=== PATIENT | female | born 1950 | race Caucasian/White ===

== ENCOUNTER → 2016-12-24 | Outpatient (CLI) | payer MEDICARE ==
[2015-11-27 12:09] VITALS: BP 136/88
[~2016-12-24] MED LIST: AMLO5TAB2 PO; ASCO100T4 PO; ATOR10TA60 PO; CALC1TAB67 PO; CELE200C PO; EZET10TA18 PO; FEXO180T16 PO; GABA-585 PO; HYDR-2758 PO; LISI40TA PO; NAPR500T3 PO; SERT50TA PO; SIMV20TA3 PO; VITA1TAB19 PO; ZINC50TA29 PO
--- NOTE | 2016-12-24 13:20 | KCIC ---
LUMBAR SPINE 2-3V History: Low back pain, history of vertebroplasty Comparison: November 13, 2015 MRI lumbar spine exam Findings: 3 views of the lumbar spine are submitted. There has been interval vertebroplasty at T12. There is again moderate to severe degenerative disc disease greater on the right at L3-4 and L2-3. There is moderate lumbar levoscoliosis centered upon the lumbar spine. There is minimal right lateral subluxation L2 relative to L3. There is minimal left lateral subluxation L4 relative to L5. AP alignment is adequate. There is multilevel lumbar facet degenerative change. There is atherosclerotic calcification of the abdominal aorta. Impression: 1. There is moderate to severe degenerative disc disease L3-4 and L2-3. There is moderate lumbar levoscoliosis. There is multilevel lumbar facet degenerative change. 2. There has been vertebroplasty at T12, lumbar vertebral body stature overall maintained. Electronically signed by: Chris Chavez MD (12/24/2016 1:16 PM) [id number]
--- NOTE | 2016-12-24 13:39 | KCIC ---
CT Abdomen and Pelvis without contrast History: Back pain, microscopic hematuria, previous vertebroplasty, history of kidney stones Technique: Noncontrast CT imaging was performed of the abdomen and pelvis. Multiplanar images are reviewed. Exposure: One or more of the following individualized dose reduction techniques were utilized for this examination: 1. Automated exposure control 2. Adjustment of the mA and/or kV according to patient size 3. Use of iterative reconstruction technique. Comparison: April 09, 2014 Findings: There is mild motion degradation. There is 4 mm inferior right renal calculus which is overall smaller previously up to 7 8 mm. There is new superior right renal calculus up to 4 mm. 5 mm mid left renal calculus is unchanged. A couple of other left renal calculi seen previously are no longer visualized. There is no hydronephrosis of either kidney. A couple of small calcifications in the right pelvis are near although believed to be outside the right ureter. It is difficult to visualize the left ureter in its entirety, no significant ureteral dilatation more proximally. There is stable 36 mm transverse by 29 mm AP focus of cystic change anterior to the left kidney superiorly extending into the region of left adrenal gland. There is small focus of cystlike hypodensity of the left adrenal gland up to 14 mm also similar. Accurate evaluation of abdominal visceral organs is limited without intravenous contrast. There is no obvious abnormality of the spleen, liver, or pancreas. Accurate evaluation of bowel is limited without oral contrast. There is no significant free air, free fluid, bowel dilatation. There is retained stool variably throughout the colon. Some segments of small bowel are limits of normal in caliber with some air-fluid levels present without discrete transition point identified. There is now broad laxity of the ventral abdominal pelvic fascia with underlying bowel which extends near the skin surface with diastasis of the rectus musculature. There again some calcified masses of the uterus likely due to fibroids. There is scattered atherosclerotic calcification of the normal caliber abdominal aorta, also iliac arteries. There is moderate lumbar levoscoliosis. There is right lateral subluxation of L2 relative to L3 by about 0.8 cm. There is more advanced degenerative disc disease L3-4 and L2-3. There has been vertebroplasty at L1. There is multilevel lumbar facet degenerative change. There is moderate to severe narrowing of the right L3-4 neural foramen. There is nonspecific circumferential prominence of the urinary bladder keita. Impression: 1. There are bilateral renal calculi, variable change compared with previous exam as stated. There is no hydronephrosis or convincing ureteral calculus although ureters in the pelvis difficult to visualize in their entirety. 2. There is now broad laxity of the ventral abdominal pelvic fascia extending near the skin surface with underlying bowel, diastasis of the rectus musculature. 3. There is lumbar levoscoliosis. There is multilevel degenerative disc disease and facet degenerative change. There is neural foramina compromise including more significant narrowing on the right at L3-4. There is right lateral subluxation L2 relative to L3. 4. Calcified masses of the uterus are likely due to fibroids. 5. There is unchanged cyst anterior to the superior left kidney extending to the region of left adrenal gland. Electronically signed by: Chris Chavez MD (12/24/2016 1:36 PM) [facility]
== END | disposition home or self-care (01) ==
LOC: KCIC CT 11:52
PROVIDERS: ATTEND Family Medicine
DX: M51.36 Other intervertebral disc degeneration, lumbar region (principal); N20.0 Calculus of kidney; I70.0 Atherosclerosis of aorta; N81.89 Other female genital prolapse; N28.1 Cyst of kidney, acquired; M48.06 Spinal stenosis, lumbar region; Z87.442 Personal history of urinary calculi
CPT/HCPCS: 72100; 74176

== ENCOUNTER → 2017-03-25 | Outpatient (CLI) | payer MEDICARE ==
[2015-11-27 12:09] VITALS: BP 136/88
[~2017-03-25] MED LIST changes: -NAPR500T3 PO; +NAPR500T4 PO
--- NOTE | 2017-03-25 17:15 | KCIC ---
Bilateral digital screening mammograms: Reason for examination: Routine screening. Comparison is made to previous study dated 03/11/2016 and 04/16/2015. Interpretation was made with the benefit of CAD. The skin and nipples show no abnormalities. No abnormal axillary lymph nodes are seen. The breast parenchyma shows scattered fibroglandular density. (Breast density: Category B.) There are no dominant masses, suspicious calcifications or architectural distortions. Some benign calcifications are present. Impression: No evidence of malignancy. Recommend routine screening. BI-RADS category 2: Benign "Our facility is accredited by the [employer] Mammography Program." This patient's information has been entered into a reminder system for the patient to be notified with the results of her examination and a target date for the next mammogram. Electronically signed by: Anais Urias MD (03/25/2017 5:11 PM) [id number]
== END | disposition home or self-care (01) ==
LOC: KCIC MAMMO 09:15
PROVIDERS: ATTEND Family Medicine
DX: Z12.31 Encounter for screening mammogram for malignant neoplasm of breast (principal)
CPT/HCPCS: G0202; 77067

== ENCOUNTER → 2017-03-26 | Outpatient (CLI) | payer MEDICARE ==
[2015-11-27 12:09] VITALS: BP 136/88
[~2017-03-26] MED LIST changes: +REGADENOSON 0.4 MG/5 ML DISP.SYRIN. IV ONE
--- NOTE | 2017-03-26 11:37 | RAD ---
APPROVED REPORT Test Type: Pharmacological Stress Nurse/Tech: Marzena Caicedo R.N. Test Indications: dyspnea, fatigue Cardiac History: htn, current smoker Medications: See Electronic Medical Record Medical History: See Electronic Medical Record Resting ECG: SB w/ slight ST depression < 1 small box in leads V4-V6 Resting Heart Rate: 55 bpm Resting Blood Pressure: 132/89mmHg Pretest Chest Pain: No chest pain Nurse/Tech Notes S1S2, lungs - slight coarse wheezing Consent: The procedure was explained to the patient in lay terms. Informed consent was witnessed. Jaime eout was entered into [employer]. History and Stress Test performed by [facility]. Details Pharmacologic stress testing was performed using 0.4mg per 5ml of regadenoson given intravenously ove r 7-10 seconds. Stress Symptoms SOB which she quickly recovered from POST EXERCISE Reason for Termination: Infusion complete Max HR: 86 bpm Max Blood Pressure: 147/79mmHg Blood Pressure response to exercise: Normal blood pressure response during stress. Heart Rate response to exercise: wnl Chest Pain: No. Arrhythmia: No. ST Change: No. INTERPRETATION Stress EKG Conclusion: No evidence of stress induced EKG changes. Imaging Protocol IMAGE PROTOCOL: Rest Tc-99m/stress Tc-99m 1 day Rest: Stress: Viability: Radiopharm.Tc99m NbwrwrglkVm99q Sestamibi Gakx51lPr 33.8mCi Duration 15min. 10min. Img Date 03/26/2017 03/26/2017 Inj-Img Tyfh16kcv. 60min. Rest Admin Site:IV - Left AntecubitalAdministrator:RT Alvino (R)(N) Stress Admin Site: IV - Left AntecubitalAdministrator: NINI Pang STRESS DATA End Diast. Vol.77.0mlAv. Heart Rate86.0bpm End Syst. Vol.14.0mlCO Index BSA0.0L/min Myocardial Hrns521.0gEject. Przimmoe82.0% Stress Rates Pk. Fill Rate3.78EDV/secLVtime Pk. Fill 206.57msec Pk. Empty Rate5.60ESV/secLVtime Pk. Szkeo254.24msec 1/3 Pk. Fill0.86EDV/sec Stress Scores Regional WT1.00Summed WT6.00 Regional WM0.00Summed WM0.00 The rest and stress images show normal perfusion, normal contraction and thickening. LV Perf. Quant 17 Seg. SSS0.00 17 Seg. SRS0.00 17 Seg. SDS0.00 Stress Defect Extent (% LAD)0.00Rest Defect Extent (% LAD)0.00Rev. Defect Extent (% LAD)0.00 Stress Defect Extent (% LCX) 0.00Rest Defect Extent (% LCX)0.00Rev. Defect Extent (% LCX)0.00 Stress Defect Extent (% RCA)0.00Rest Defect Extent (% RCA)0.00Rev. Defect Extent (% RCA)0.00 Stress Defect Extent (% NIKITA)0.00Rest Defect Extent (% NIKITA)0.00Rev. Defect Extent (% NIKITA)0.00 Other Information Quality:Good Risk Assessment: Low Risk Conclusion 1. No evidence of EKG changes with stress testing. 2. Normal perfusion at stress/rest. 3. Low risk study. 4. EF > 60%.
== END | disposition home or self-care (01) ==
LOC: NM 07:01
PROVIDERS: ATTEND Family Medicine
DX: I10 Essential (primary) hypertension (principal); E78.5 Hyperlipidemia, unspecified; M54.5 Low back pain; R53.83 Other fatigue; R06.00 Dyspnea, unspecified
CPT/HCPCS: 78452; 93017; 96374; 96375; 96376; A9500; J2785

== ENCOUNTER → 2017-03-29 | Outpatient (CLI) | payer MEDICARE ==
[2015-11-27 12:09] VITALS: BP 136/88
[~2017-03-29] MED LIST changes: -REGADENOSON 0.4 MG/5 ML DISP.SYRIN. IV ONE
--- NOTE | 2017-03-29 10:26 | KCIC ---
MRI of the lumbar spine without contrast 03/29/2017 CLINICAL HISTORY: Chronic low back pain. TECHNIQUE: Unenhanced T1-weighted, T2-weighted and inversion recovery sagittal and T1-weighted and T2-weighted axial images of the lumbar spine were obtained. FINDINGS: Comparison is made to radiographs of the lumbar spine dated 12/24/2016. Mild to moderate S-shaped curvature of the thoracolumbar spine is seen. The patient is post kyphoplasty type procedure for an old compression fracture involving the T12 vertebral body. There is no MRI evidence of an acute compression fracture involving the lumbar vertebrae. Degenerative signal changes are seen involving all of the disks of the lumbar spine. Degenerative signal changes are seen within the marrow surrounding these discs. Loss of height of the L2-3 and L3-4 discs is noted. The conus medullaris is normal in position and signal characteristics. At the T11-12 disc space there is a mild to moderate generalized disc bulge. This is eccentric to the left. Superimposed on this disc bulge is a central/left paracentral disc osteophyte complex. This measures 3 mm in AP diameter. Degenerative changes are seen involving the facet joints bilaterally. These findings efface the anterior CSF without resulting in significant central spinal canal or neural foraminal stenosis. At the T12-L1 disc space there is a minimal generalized disc bulge. Degenerative changes are seen involving the facet joints bilaterally. These findings do not result in significant central spinal canal or neural foraminal stenosis. At the L1-2 disc space there is a mild to moderate generalized disc bulge. This is eccentric to the left. Degenerative changes are seen involving the facet joints bilaterally. There is mild ligamentum flavum hypertrophy bilaterally. These findings when combined result in mild left greater than right central spinal canal stenosis. Mild left neural foraminal stenosis is seen. The right neural foramen is patent. At the L2-3 disc space there is a moderate generalized disc bulge. Degenerative changes are seen involving the facet joints bilaterally. There is mild ligamentum flavum hypertrophy bilaterally. These findings when compared result in mild to moderate central spinal canal stenosis. Mild bilateral neural foraminal stenosis is seen. At the L3-4 disc space there is a mild to moderate generalized disc bulge. This is eccentric to the right. Degenerative changes are seen involving the facet joints bilaterally. Small facet joint effusions, left greater than right are noted. Mild to moderate ligamentum flavum hypertrophy is seen. These findings when combined result in mild to moderate central spinal canal stenosis. Moderate right neural foraminal stenosis is seen. The left neural foramen is patent. At the L4-5 disc space there is a mild to moderate generalized disc bulge. Degenerative changes are seen involving the facet joints bilaterally. There is mild ligamentum flavum hypertrophy bilaterally. These findings when combined do not result in significant central spinal canal or neural foraminal stenosis. At the L5-S1 disc space there is a mild generalized disc bulge. Degenerative changes are seen involving the facet joints bilaterally. These findings do not result in significant central spinal canal or neural foraminal stenosis. IMPRESSION: The changes of degenerative disc disease are seen involving the lower thoracic and the throughout the lumbar spine. These findings result in mild left greater than right central spinal canal stenosis at L1-2 and mild to moderate central spinal canal stenosis at L2-3 and L3-4. Mild left neural foraminal stenosis is seen at L1-2. Mild bilateral neural foraminal stenosis is seen at L2-3. Moderate right neural foraminal stenosis is seen at L3-4. Electronically signed by: Chad Sampson MD (03/29/2017 10:23 AM) [facility]
== END | disposition home or self-care (01) ==
LOC: KCIC MRI 09:21
PROVIDERS: ATTEND Family Medicine
DX: M48.061 Spinal stenosis, lumbar region without neurogenic claudication (principal); M51.36 Other intervertebral disc degeneration, lumbar region
CPT/HCPCS: 72148

== ENCOUNTER → 2017-04-16 | Outpatient (CLI) | payer MEDICARE ==
[2015-11-27 12:09] VITALS: BP 136/88
[~2017-04-16] MED LIST changes: +IOHEXOL 180 MG/ML 10 ML VIAL. ONE; +methylPREDNISolone ACETATE 40 MG/ML VIAL. ONE; +methylPREDNISolone ACETATE 80 MG/ML VIAL. ONE
--- NOTE | 2017-04-16 20:56 | PAIN ---
DATE OF SERVICE: 04/16/2017 INITIAL CONSULTATION FOR PAIN CLINIC CHIEF COMPLAINT: Low back and bilateral lower extremity pain. HISTORY OF PRESENT ILLNESS: This is a 67-year-old female who presents with history of pain for "many years "in the low back and bilateral lower extremities. The patient has had physical therapy in the past as well as some chiropractic treatment, which she feels has been helping to a moderate extent, but she got to the point where the pain is still present without significant improvement. The patient reports she also has some pain in her low back radiating to bilateral lower extremities, worse on the right than the left. The patient has significant history of having polio as a child and significant limp from this on her right side, also some significant knee pain. She has been helped significantly by gabapentin, which she is taking currently. The patient reports otherwise the pain is worse with standing, walking, changing positions, better with sitting or lying down, awakens her from sleep only very rarely and she usually sleeps on her stomach. The patient reports it can affect her bowel or bladder control. She can have some difficulty with frequency, but no actual loss of continence. The patient reports she has difficulty with walking. She has a cane or walker but did not have either with her today. The patient reports the pain is aching, constant becoming more noticeable, worse with walking, standing, once again better with sitting or lying down. The patient reports it is beginning to radiate in the posterior gluteus, posterior thighs, especially on the right side into the posterior calf occasionally when she is on her feet more than about 30 minutes. The patient did have an MRI scan of the lumbar spine showing degenerative changes throughout the lumbar spine with mild left greater than right central spinal stenosis at L1-L2, usov-kt-fsupjeec central stenosis L2-L3 and L3-L4 with mild left neural foraminal stenosis at L1-L2, mild bilateral neural foraminal stenosis at L2-L3 and moderate right neural foraminal stenosis at L3-L4. The patient reports no loss of motor function but significant fatigability, especially at the right leg more over the last month or so with walking. The patient again is taking gabapentin, also is taking Jewell, which does decrease the pain by about 50%-60% when she takes it. PAST MEDICAL HISTORY: Significant for arthritis, hypertension, hearing aids with cigarette smoking and hyperlipidemia. Again, history of polio, history of anxiety and osteopenia. PAST SURGICAL HISTORY: Previous surgeries include cholecystectomy in 1974. Previous surgeries on her right ankle and knee related to the polio and compression fracture in 2016. 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 MEDICATIONS: Include atorvastatin, vitamin C, zinc, gabapentin, lisinopril, Celebrex, Zoloft, amlodipine, Zetia and calcium. ALLERGIES: The patient has no known drug allergies. FAMILY HISTORY: Significant for no major medical problems or conditions that she is aware of. SOCIAL HISTORY: The patient does not drink alcohol, smokes about 1 pack of cigarettes a day and has for over 50 years. She is , lives with her spouse, lives locally in [place], [place] and is currently retired. REVIEW OF SYSTEMS: The patient's review of systems is positive for those items mentioned in history of present illness. All systems reviewed and otherwise negative. It is complete, full and well documented on the patient's chart. PHYSICAL EXAMINATION: VITAL SIGNS: Today, the patient's blood pressure is 150/83, pulse is 73, respirations are 20, temperature 97.9 degrees Fahrenheit, height is 5 feet 2 inches and weighs 172 pounds. GENERAL: The patient is awake, alert, oriented, appropriate and very pleasant demeanor. HEENT: Head shows normocephalic and atraumatic. Extraocular movements are intact and symmetrical. Oral cavity: Mucous membranes moist and pink. Dentition is intact. NECK: Shows anterior throat supple without palpable lymphadenopathy noted. Swallow reflex is symmetrical. CHEST: Shows normal with inspection. Breath sounds clear to auscultation bilaterally. HEART: Shows S1 and S2 clear. No murmurs auscultated. ABDOMEN: Obese but soft, nontender and nondistended. Extensive surgical scarring is noted in the hypogastric region. No rebound or guarding. BACK: The patient's back shows spine grossly in the midline. Slight exaggeration of thoracic kyphosis and mild flattening of the lumbar lordotic curvature. No previous bruises, lesions, rashes or scars are noted in the lumbar distribution. Lumbar paraspinous muscle shows symmetrical on inspection with palpation shows some moderate tenderness throughout the upper, middle, lower distribution of paraspinous muscles bilaterally but without trigger points, without radiation. No tenderness over the sacrum or the sacroiliac regions. The patient has good rotational motion both laterally as well as extension and flexion greater than 10 degrees and extension, right and left lateral rotation and forward flexion 45 degrees without significant pain. The patient's lower extremities show deep tendon reflexes 1+ in the patellar and tendo calcaneus tendons. Motor exam is approximately 4 on a scale of 5 bilaterally but intact with dorsiflexion, extension, quadriceps and hamstring flexion, slightly weaker on the right than the left but intact bilaterally. Peripheral pulses are 1+ posterior tibial and dorsalis pedis pulses. No peripheral edema is noted. No clubbing or cyanosis. The patient's straight leg raise noted to be grossly positive, more on the right than the left at about 35-40 degrees but decreased with knee flexion. Gaenslen's and Israel's maneuvers are difficult to obtain on the right side as she is not able to externally rotate her hip very far, but no pain reported in the left side shows negative findings as well. The patient is able to stand, stand on her toes with some difficulty on the right foot, again secondary to previous surgeries and polio. Left side shows strong ability to stand on her left leg without significant increase in pain. The patient ambulates with a significant limping gait favoring the right lower extremity to a significant extent again. Does not have a cane or walker with her today but reports she normally uses one when she is walking any distance. The patient's skin shows a warm and dry, good turgor with no significant edema. Again, scarring on the abdominal wall is noted. IMPRESSION: 1. This is a 67-year-old female with multiple year history of low back pain, increasing in the bilateral lower extremities, right greater than left. 2. MRI scan of the lumbar spine as noted. 3. History of polio. 4. Arthritis. 5. Hypertension. 6. Cigarette smoking. PLAN: Options were discussed with the patient including conservative medical management, physical therapy, interventional techniques and she would like to pursue interventional techniques and she has had physical therapy and chiropractic procedures currently and in the past. We discussed a lumbar epidural steroid injection using description as well as anatomical models to describe the procedure. Risks were then discussed including, but not limited to bleeding, infection, possibility of epidural hematoma, subsequent neurological compromise, dural puncture, headaches, spinal cord and/or nerve damage, side effects of steroid medication and poor results regarding pain control. The patient understands and wished to proceed. The patient to return to clinic in approximately 2 weeks for followup, was counseled to return appointment, activity level and side effects to be aware of. DIAGNOSES: Lumbar radiculopathy with lumbar degenerative disk disease and lumbar spinal stenosis. PROCEDURE: Lumbar epidural steroid injection, translaminar approach at L4-L5 level using C-arm fluoroscopic guidance and sterile prep and drape using local anesthetic. MEDICATION INJECTED: A total of 120 mg Depo-Medrol plus 10 mL of preservative-free normal saline and 2 mL of Isovue for contrast. CONDITION AT DISCHARGE: Stable. The patient tolerated procedure well, had no complications. CHELSEY RIOS MD DR: BASIM/amairani JOB#: [id number] / [id number] DESI Mckay MD
== END | disposition home or self-care (01) ==
LOC: PNCL 09:50
PROVIDERS: ATTEND Anesthesiology
DX: M51.16 Intervertebral disc disorders with radiculopathy, lumbar region (principal); M48.061 Spinal stenosis, lumbar region without neurogenic claudication; I10 Essential (primary) hypertension; F17.200 Nicotine dependence, unspecified, uncomplicated; F41.9 Anxiety disorder, unspecified; Z90.49 Acquired absence of other specified parts of digestive tract; Z98.890 Other specified postprocedural states; Z87.39 Personal history of other diseases of the musculoskeletal system and connective tissue; Z72.0 Tobacco use
CPT/HCPCS: 62323; J1030; J1040

== ENCOUNTER → 2017-04-30 | Outpatient (CLI) | payer MEDICARE | END | disposition home or self-care (01) | LOC: PNCL 08:23 | DX: M51.16 Intervertebral disc disorders with radiculopathy, lumbar region (principal); M48.061 Spinal stenosis, lumbar region without neurogenic claudication | CPT/HCPCS: G0463 ==

== ENCOUNTER → 2017-12-21 | Outpatient (CLI) | payer MEDICARE ==
[2015-11-27 12:09] VITALS: BP 136/88
[~2017-12-21] MED LIST changes: -IOHEXOL 180 MG/ML 10 ML VIAL. ONE; +LISI-130 PO; -LISI40TA PO; +NAPR-514 PO; -NAPR500T4 PO; +VARE0.5T PO; -methylPREDNISolone ACETATE 40 MG/ML VIAL. ONE; -methylPREDNISolone ACETATE 80 MG/ML VIAL. ONE
--- NOTE | 2017-12-21 11:59 | CARD ---
MR#: [id number] Date of Study: 12/21/2017 Ordering Physician: DESI MENA, Referring Physician: DESI MENA, Tech: Cari Yu APPROVED REPORT EXAM: Two-dimensional and M-mode echocardiogram with Doppler and color Doppler. Other Information Quality : GoodHR: 63bpm INDICATION Pedal Edema 2D DIMENSIONS RVDd2.5 (2.9-3.5cm)Left Atrium(2D)3.7 (1.6-4.0cm) IVSd1.2 (0.7-1.1cm)Aortic Root(2D)3.0 (2.0-3.7cm) LVDd5.0 (3.9-5.9cm)LVOT Diameter2.1 (1.8-2.4cm) PWd1.1 (0.7-1.1cm)LVDs2.7 (2.5-4.0cm) FS (%) 46.1 %SV89.6 ml Aortic Valve AoV Peak Reuben.160.0cm/sAoV VTI31.9cm AO Peak GR.10.2mmHgLVOT Peak Reuben.122.3cm/s AO Mean GR.5mmHgAVA (VMAX)2.52cm2 Mitral Valve MV E Dbpmyhbd44.1cm/sMV DECEL FSAU334ou MV A Thkwfduo66.9cm/sE/A Ratio0.9 Tricuspid Valve TR P. Qydsvynn127de/sRAP BYTUUPAG0fkEl TR Peak Gr.87ouLfNKFT02qsOk Pulmonary Vein S1 Xzkwvatz28.4cm/sD2 Npomjjpx93.0cm/s PVa [id number] LEFT VENTRICLE The left ventricle is normal size. There is borderline to mild concentric left ventricular hypertroph y. The left ventricular systolic function is normal and the ejection fraction is within normal range. The Ejection Fraction is 60-65%. There is normal LV segmental wall motion. Transmitral Doppler flow pattern is Grade I-abnormal relaxation pattern. RIGHT VENTRICLE The right ventricle is normal size. There is normal right ventricular wall thickness. The right ventr icular systolic function is normal. ATRIA The left atrium size is normal. The right atrium size is normal. The interatrial septum is intact wit h no evidence for an atrial septal defect or patent foramen ovale as noted on 2-D or Doppler imaging. AORTIC VALVE The aortic valve is normal in structure and function. Doppler and Color Flow revealed no significant aortic regurgitation. There is no significant aortic valvular stenosis. MITRAL VALVE The mitral valve is normal in structure and function. There is no mitral valve stenosis. Doppler and Color-flow revealed trace mitral regurgitation. TRICUSPID VALVE The tricuspid valve is normal in structure and function. Doppler and Color Flow revealed trace tricus pid regurgitation. Estimated PAP 39mmHg. PULMONIC VALVE The pulmonary valve is normal in structure and function. Doppler and Color Flow revealed no pulmonic valvular regurgitation. GREAT VESSELS The aortic root is normal in size. The IVC is normal in size and collapses >50% with inspiration. PERICARDIAL EFFUSION There is no evidence of significant pericardial effusion. Critical Notification Critical Value: No <Conclusion> The left ventricle is normal size. The left ventricular systolic function is normal and the ejection fraction is within normal range. The Ejection Fraction is 60-65%. There is borderline to mild concentric left ventricular hypertrophy. There is no significant aortic valvular stenosis. Doppler and Color Flow revealed no significant aortic regurgitation. Doppler and Color-flow revealed trace mitral regurgitation. Doppler and Color Flow revealed trace tricuspid regurgitation. Estimated PAP 39mmHg. Signed by : Isaiah Neil MD Electronically Approved : 12/21/2017 11:58:17
== END | disposition home or self-care (01) ==
LOC: ECHO 08:24
PROVIDERS: ATTEND Family Medicine
DX: I11.9 Hypertensive heart disease without heart failure (principal); E78.5 Hyperlipidemia, unspecified; J44.9 Chronic obstructive pulmonary disease, unspecified; Z86.2 Personal history of diseases of the blood and blood-forming organs and certain disorders involving the immune mechanism; Z87.442 Personal history of urinary calculi; Z87.39 Personal history of other diseases of the musculoskeletal system and connective tissue
CPT/HCPCS: 93306

== ENCOUNTER → 2018-03-10 | Outpatient (CLI) | payer MEDICARE ==
[2015-11-27 12:09] VITALS: BP 136/88
[~2018-03-10] MED LIST changes: -AMLO5TAB2 PO; +AMLO5TAB7 PO; +IOHEXOL 180 MG/ML 10 ML VIAL. ONE; +methylPREDNISolone ACETATE 40 MG/ML VIAL. ONE; +methylPREDNISolone ACETATE 80 MG/ML VIAL. ONE
--- NOTE | 2018-03-10 16:15 | PAIN ---
DATE OF SERVICE: 03/10/2018 PROGRESS NOTE FOR PAIN CLINIC DIAGNOSES: Lumbar radiculopathy with lumbar degenerative disk disease, lumbar spinal stenosis. HISTORY OF PRESENT ILLNESS: The patient is a 68-year-old female who returns for followup, last seen 04/30/2017. The patient has done very well by 80% improvement after a lumbar epidural steroid injection on 04/16/2017. The patient reports the pain is returning now in the low back bilaterally as it was previously. The patient reports it has been this way for about 3-4 weeks, increasing, not the result of any specific recent injury or accident or other causative injury that she is aware of, but the pain has been returning on its own slowly. The patient reports it is across the low back in the bilateral posterior gluteus, posterior thighs, lateral thighs, lateral anterior thighs, medial thighs, aching, cramping and constant in description, rates 8 on a scale of 10 at its worst, 6 on average and 3 at its least and is a 6 today. The patient reports no loss of motor function. It is waking her from sleep about every 4 hours over the past month or so. The patient reports no new bowel or bladder incontinence or other complaints. PHYSICAL EXAMINATION: VITAL SIGNS: The patient's blood pressure 138/85, pulse 77, respirations 18, temperature 98.9 degrees Fahrenheit, height is 5 feet 2 inches, weight 163 pounds. GENERAL: The patient is awake, alert, oriented, appropriate, very pleasant demeanor. HEENT: Head is normocephalic, atraumatic. Extraocular movements are intact and symmetrical. Oral cavity: Mucous membranes moist and pink. Dentition intact. NECK: Shows anterior throat supple without palpable lymphadenopathy noted. Swallow reflex symmetrical. CHEST: Shows normal with inspection. Breath sounds clear to auscultation bilaterally. HEART: Shows S1, S2 clear. No murmurs auscultated. ABDOMEN: Soft, nontender, nondistended, obese. No palpable organomegaly is noted. No rebound or guarding demonstrated. BACK: Shows spine grossly in the midline with normal appearing thoracic kyphosis and lumbar lordotic curvature. Lumbar paraspinous muscle shows symmetrical on inspection, with palpation shows some moderate tenderness diffusely, but only with deeper palpation in the low lumbar distribution without radiation. The patient has good rotational motion of lumbar spine, both laterally as well as extension and flexion without significant difficulty. No tenderness over the sacrum or sacroiliac regions over the spinous processes. EXTREMITIES: The patient's lower extremities show deep tendon reflexes at 1+ in the patellar and tendo-calcaneus tendons. Motor exam is approximately 4 on a scale of 5, but equal and symmetrical bilaterally dorsiflexion, extension, quadriceps and hamstring flexion. Peripheral pulses are positive, 1+ posterior tibial. No peripheral edema is noted bilaterally. PLAN: Options were discussed with the patient. The patient's old chart was reviewed as her current medication regimen updated. Current review of systems updated today as well. We will proceed with a lumbar epidural steroid injection today with fluoroscopic guidance. Risks were again discussed including, but not limited to bleeding, infection, possibility of epidural hematoma and subsequent neurological compromise, dural puncture, headaches, spinal cord and/or nerve damage, side effects of steroid medication and poor results regarding pain control. The patient understands and wished to proceed. The patient will return to clinic in approximately 2 weeks for followup, was counseled on return appointment, activity level and side effects to be aware of. DIAGNOSES: Lumbar radiculopathy with lumbar degenerative disk disease, lumbar spinal stenosis. PROCEDURE: Lumbar epidural steroid injection, translaminar approach L4-L5 level using C-arm fluoroscopic guidance under sterile prep and drape using local anesthetic. MEDICATION INJECTED: A total of 120 mg Depo-Medrol plus 10 mL of preservative-free normal saline and 2 mL of Isovue for contrast. CONDITION AT DISCHARGE: Stable. The patient tolerated the procedure well, had no complications. CHELSEY RIOS MD DR: BASIM/amairani JOB#: [id number] / [id number]
== END | disposition home or self-care (01) ==
LOC: PNCL 09:18
PROVIDERS: ATTEND Anesthesiology
DX: M51.16 Intervertebral disc disorders with radiculopathy, lumbar region (principal); F41.9 Anxiety disorder, unspecified; I10 Essential (primary) hypertension; F17.210 Nicotine dependence, cigarettes, uncomplicated; Z79.899 Other long term (current) drug therapy; Z98.890 Other specified postprocedural states; Z90.49 Acquired absence of other specified parts of digestive tract; Z80.41 Family history of malignant neoplasm of ovary
CPT/HCPCS: 62323; J1030; J1040; Q9965

== ENCOUNTER → 2019-01-19 | Outpatient (CLI) | payer MEDICARE ==
[2015-11-27 12:09] VITALS: BP 136/88
[~2019-01-19] MED LIST changes: +AMLO5TAB10 PO; -AMLO5TAB7 PO; +BUPIVACAINE MPF 0.5% 10 ML VIAL for KCIC. IM ONE; +CHOL100013 PO; -EZET10TA18 PO; +EZET10TA20 PO; -HYDR-2758 PO; +HYDR-2761 PO; +HYDR-2765 PO; -IOHEXOL 180 MG/ML 10 ML VIAL. ONE; +IOHEXOL 300 MG/ML 50 ML VIAL. INT ART ONE; +LIDOCAINE 1% Multi-Dose 20 ML VIAL. ID ONE; +SIMV20TA18 PO; -SIMV20TA3 PO; -ZINC50TA29 PO; +ZINC50TA39 PO; +methylPREDNISolone ACETATE 40 MG/ML VIAL. INT ART ONE; -methylPREDNISolone ACETATE 40 MG/ML VIAL. ONE; -methylPREDNISolone ACETATE 80 MG/ML VIAL. ONE
--- NOTE | 2019-01-19 16:58 | KCIC ---
PROCEDURE Therapeutic right hip injection using fluoroscopic guidance. HISTORY Hip pain. TECHNIQUE The procedure was explained to the patient as were potential risks, including infection, bleeding or allergic reaction. All questions were answered. Informed written and verbal consent was obtained. The hip was prepped and draped in the usual sterile manner. Following administration of local anesthetic, a 22-gauge spinal needle was advanced into the hip joint without difficulty, with care taken to avoid the vascular structures. Stylet was removed and following negative aspiration, a mixture of 4 cc Omnipaque-300, 2 cc (80 mg) Depo-Medrol, 4 cc bupivacaine and 4 cc 1% lidocaine were injected without difficulty. Fluoroscopy demonstrates uniform and satisfactory distribution of the injection through the hip. The needle was removed. There was good hemostasis at the injection site. The patient left in stable condition without immediate complication. 2 spot images were obtained. FLUOROSCOPY TIME: 22 seconds Electronically signed by: Ricco Russ MD (01/19/2019 4:55 PM) [id number]
== END | disposition home or self-care (01) ==
LOC: KCIC 09:38
PROVIDERS: ATTEND Orthopaedic Surgery Sports Medicine
DX: M25.551 Pain in right hip (principal)
CPT/HCPCS: 20610; 77002; J1030; Q9967

== ENCOUNTER → 2019-03-08 | Outpatient (CLI) | payer MEDICARE ==
[2015-11-27 12:09] VITALS: BP 136/88
[~2019-03-08] MED LIST changes: -BUPIVACAINE MPF 0.5% 10 ML VIAL for KCIC. IM ONE; +IOHEXOL 180 MG/ML 10 ML VIAL. ONE; -IOHEXOL 300 MG/ML 50 ML VIAL. INT ART ONE; -LIDOCAINE 1% Multi-Dose 20 ML VIAL. ID ONE; -methylPREDNISolone ACETATE 40 MG/ML VIAL. INT ART ONE; +methylPREDNISolone ACETATE 40 MG/ML VIAL. ONE; +methylPREDNISolone ACETATE 80 MG/ML VIAL. ONE
--- NOTE | 2019-03-09 00:09 | PAIN ---
DATE OF SERVICE: 03/08/2019 PROGRESS NOTE FOR PAIN CLINIC DIAGNOSIS: Lumbar radiculopathy with lumbar degenerative disk disease and lumbar spinal stenosis. HISTORY OF PRESENT ILLNESS: The patient is a 69-year-old female who returns for followup, last seen on 03/10/2018. The patient underwent lumbar epidural steroid injection with about 80% improvement, but cannot remember how long it lasted. The patient reports the pain was significantly reduced. The pain has been returning now over the past 5-6 weeks in the low back into the right lower extremity, mostly in the posterior gluteus, posterolateral thigh, lateral anterior thigh, anterior medial knee and medial lower leg as well as the front of the lower leg. The patient reports it is 7 on a scale of 10 at its worst over the past week, 5 on average and 3 at its least and is a 5 today. The patient reports it is aching, sharp, cramping, becoming more constant with walking, standing, changing positions, better with sitting or lying down, does awaken her from sleep about every 3 hours or so. The patient reports no new motor or sensory deficits. No new bowel or bladder incontinence. The patient has no new changes with her medication regimen as well. She had a hip injection on 01/19/2019 in Interventional Radiology which did not help decrease the pain and also a Synvisc injection in the right knee which has helped, but only temporarily. PHYSICAL EXAMINATION: VITAL SIGNS: The patient's blood pressure is 154/87, pulse 84, respirations 16, temperature 98.0 degrees Fahrenheit, height is 5 feet 1 inch, weight is 181 pounds. GENERAL: The patient is awake, alert, oriented, appropriate, very pleasant demeanor. HEENT: Shows normocephalic, atraumatic. Extraocular movements are intact and symmetrical. Oral cavity, mucous membranes moist and pink. Dentition is intact. NECK: Shows anterior throat supple without palpable lymphadenopathy noted. Swallow reflex symmetrical. CHEST: Shows normal on inspection. Breath sounds are clear to auscultation bilaterally. HEART: Shows S1, S2 clear. No murmurs auscultated. ABDOMEN: Soft, nontender, nondistended. No palpable organomegaly is noted. No rebound or guarding demonstrated. BACK: Shows spine grossly in the midline. Slight exaggeration of thoracic kyphosis. Some minor flattening of lumbar lordotic curvature. Lumbar paraspinous muscle shows symmetrical on inspection, on palpation shows some moderate tenderness throughout the upper, middle and lower distribution of the paraspinous muscles bilaterally, but only diffusely without significant radiation. The patient does show good rotational motion of the lumbar spine both laterally as well as extension and flexion without difficulty. EXTREMITIES: Lower extremities show deep tendon reflexes 1+ in the patellar and tendo calcaneus tendons are equal. Motor exam is strong with approximately 4 on a scale of 5 in the dorsiflexion, extension, quadriceps and hamstring flexion, but symmetrical. Peripheral pulses are 1+ in posterior tibia. No peripheral edema is noted. Straight leg raise is noted to be negative for reproduction of radicular symptoms bilaterally as are Gaenslen's and Israel's maneuvers negative as well. The patient is able to stand. She is using a cane in her left hand and walks with a significant favoring gait favoring the right lower extremity. Options were discussed with the patient. The patient's old chart was reviewed as is her current medication regimen updated. Current review of systems updated today as well. We will proceed with a first in this series of lumbar epidural steroid injection today with fluoroscopic guidance. Risks were again discussed including, but not limited to bleeding, infection, possibility of epidural hematoma, subsequent neurological compromise, dural puncture, headaches, spinal cord and/or nerve damage, side effects of steroid medication and poor results regarding pain control. The patient understands and wished to proceed. The patient will return to clinic in approximately 2 weeks for followup. She was counseled on return appointment, activity level and side effects to be aware of. DIAGNOSIS: Lumbar radiculopathy with lumbar degenerative disk disease and lumbar spinal stenosis. PROCEDURE: Lumbar epidural steroid injection, translaminar approach L4-L5 level using [facility] fluoroscopic guidance under sterile prep and drape using local anesthetic. MEDICATIONS INJECTED: A total of 120 mg of Depo-Medrol plus 10 mL of preservativefree normal saline and 2 mL of contrast. CONDITION AT DISCHARGE: Stable. The patient tolerated the procedure well, had no complications. HCELSEY RIOS MD DR: BASIM/amairani JOB#: [id number] / [id number]
== END ==
LOC: PNCL 14:18
PROVIDERS: ATTEND Anesthesiology
DX: M51.16 Intervertebral disc disorders with radiculopathy, lumbar region (principal); M48.061 Spinal stenosis, lumbar region without neurogenic claudication
CPT/HCPCS: 62323; J1030; J1040; Q9965

== ENCOUNTER → 2019-06-05 | Outpatient (CLI) | payer MEDICARE ==
[2015-11-27 12:09] VITALS: BP 136/88
--- NOTE | 2019-06-05 22:28 | PAIN ---
DATE OF SERVICE: 06/05/2019 PROGRESS NOTE FOR PAIN DIAGNOSES: Lumbar radiculopathy with lumbar degenerative disk disease and lumbar spinal stenosis. HISTORY OF PRESENT ILLNESS: This is a 47-year-old 69-year-old female who returns for followup status post lumbar epidural steroid injection x 1, most recently seen on 03/08/2019. The patient reports she did fairly well, about 75% improvement initially, but the pain began to return over time and now down to about 25% improvement overall. The patient reports no motor or sensory deficits, no new bowel or bladder incontinence or other complaints, but still significant pain in the low back and the right lower extremity, was previously in the posterior gluteus, posterolateral thigh, lateral anterior thigh, anterior medial thigh, medial knee and lower leg to the extent as well as into the posterior calf on the right side. The patient reports no loss of motor function, no bowel or bladder incontinence or other complaints. The patient initially was increasing her activity with distance walking, doing greater activities at home as well as traveling with greater ease and comfort. The patient rates her pain as an 8 on a scale of 10 at this time. It its worst over the past week, 6 on average and 4 at its least and is a 4 today. The patient describes aching, cramping, stabbing, becoming constant and unbearable at times. She has been using a walker again over the past week or two and she has it with her today as well. PHYSICAL EXAMINATION: VITAL SIGNS: The patient's blood pressure is 148/91, pulse 83, respirations 18, temperature 97.7 degrees Fahrenheit, height is 5 feet 4 inches, weight is 184 pounds. GENERAL: The patient is awake, alert, oriented, appropriate, very pleasant demeanor. HEENT: Shows normocephalic, atraumatic. Extraocular movements are intact and symmetrical. Oral cavity: Mucous membranes moist and pink. Dentition is intact. NECK: Shows anterior throat supple without palpable lymphadenopathy noted. Swallow reflex symmetrical. CHEST: Shows normal on inspection. Breath sounds are clear bilaterally. HEART: Shows S1, S2 clear. ABDOMEN: Soft, obese, nontender, nondistended. BACK: Shows spine grossly in the midline. Exaggeration of thoracic kyphosis is again noted with some minor flattening of lumbar lordotic curvature. Lumbar paraspinous muscle shows symmetrical on inspection, with palpation some moderate tenderness diffusely bilaterally, but only diffusely without significant radiation. The patient has good rotational motion of lumbar spine, both laterally as well as extension and flexion without significant difficulty. EXTREMITIES: The patient's lower extremities show deep tendon reflexes at 1+ in the patellar and tendo calcaneus tendons. Motor exam is approximately 4 on a scale of 5, but equal and symmetrical with dorsiflexion, extension, quadriceps and hamstring flexion bilaterally. The patient's pulses are 1+ posterior tibia. No peripheral edema is noted. Options were discussed with the patient. The patient's old chart was reviewed as her current medication regimen updated. Current review of systems updated today as well. We will proceed with a lumbar epidural steroid injection, second in a series today with fluoroscopic guidance. Risks were again discussed including, but not limited to bleeding, infection, possibility of epidural hematoma, subsequent neurological compromise, dural puncture, headaches, spinal cord and/or nerve damage, side effects of steroid medication and poor results regarding pain control. The patient understands and wished to proceed. The patient will return to clinic in approximately 2 weeks for followup. She was counseled as to return appointment, activity level and side effects to be aware of. DIAGNOSES: Lumbar radiculopathy with lumbar degenerative disk disease, lumbar spinal stenosis. PROCEDURE: Lumbar epidural steroid injection, translaminar approach at L4-L5 level using C-arm fluoroscopic guidance under sterile prep and drape using local anesthetic. MEDICATION INJECTED: A total of 120 mg Depo-Medrol plus 10 mL of preservative-free normal saline and 2 mL of contrast. CONDITION AT DISCHARGE: Stable. The patient tolerated the procedure well, had no complications. CHELSEY RIOS MD DR: BASIM/amairani JOB#: [id number] / [id number]
== END ==
LOC: PNCL 11:13
PROVIDERS: ATTEND Anesthesiology
DX: M51.16 Intervertebral disc disorders with radiculopathy, lumbar region (principal); M48.061 Spinal stenosis, lumbar region without neurogenic claudication
CPT/HCPCS: 62323; J1030; J1040; Q9965

== ENCOUNTER → 2019-09-01 | Outpatient (CLI) | payer MEDICARE ==
[2015-11-27 12:09] VITALS: BP 136/88
[~2019-09-01] MED LIST changes: -IOHEXOL 180 MG/ML 10 ML VIAL. ONE; -methylPREDNISolone ACETATE 40 MG/ML VIAL. ONE; -methylPREDNISolone ACETATE 80 MG/ML VIAL. ONE
--- NOTE | 2019-09-01 11:12 | RAD ---
EXAM: Cervical spine, 6 views. HISTORY: Pain. COMPARISON: None. FINDINGS: 6 views of the cervical spine are obtained. There is mild anterolisthesis C4 on C5 and C5 on C6. There is degenerative endplate remodeling with disc space narrowing at C5-C6. There is also endplate remodeling at C6-C7. There is multilevel facet arthropathy. There is foraminal narrowing predominantly at C6-C7. IMPRESSION: 1. Multilevel degenerative change, described above. 2. No acute osseous finding. Electronically signed by: Tiana Chowdhury MD (09/01/2019 11:10 AM) [id number]
== END ==
LOC: RAD 10:30
PROVIDERS: ATTEND Family Medicine
DX: M47.812 Spondylosis without myelopathy or radiculopathy, cervical region (principal); R20.2 Paresthesia of skin; M48.02 Spinal stenosis, cervical region
CPT/HCPCS: 72050

== ENCOUNTER → 2019-10-05 | Outpatient (CLI) | payer MEDICARE ==
[2015-11-27 12:09] VITALS: BP 136/88
--- NOTE | 2019-10-05 12:44 | KCIC ---
LUMBAR SPINE WO CONTRAST Date: 10/05/2019 9:30 AM Indication: Reason: PARESTHESIA OF HAND LUMBAR RADICULOPATHY / Spl. Instructions: / History: LBP for at least 5 yrs. No surgical hx. Comparison: 03/29/2017. Technique: Multi-planar multi-weighted magnetic resonance imaging of the lumbar spine was performed without intravenous contrast using the standard lumbar spine protocol. FINDINGS: S-shaped spinal curvature. No acute fracture. Chronic T12 compression deformity with postsurgical changes of vertebral augmentation. Moderate multilevel degenerative disc desiccation and disc height loss. Degenerative endplate edema at L1-2 and L2-3. The conus terminates at a normal level. No abnormal signal is seen within the visualized distal spinal cord. No clumping of intrathecal nerve roots. No soft tissue abnormality in the visualized abdomen or pelvis. T11-12: Mild spinal canal stenosis due to osseous retropulsion of the superior endplate of T12. No significant neural foraminal narrowing. T12-L1: No disc bulge. No facet arthropathy. No significant spinal stenosis or neural foraminal narrowing. L1-L2: Disc bulge with left foraminal protrusion which abuts the exiting L1 nerve root. Mild facet arthropathy. Mild spinal stenosis. Mild left lateral recess narrowing. Moderate to severe left neural foraminal narrowing. L2-L3: Disc bulge with right far lateral protrusion. Moderate facet arthropathy. Moderate spinal stenosis. Moderate right and mild left lateral recess narrowing. Moderate to severe right and moderate left bilateral neural foraminal narrowing. L3-L4: Disc bulge. Mild to moderate facet arthropathy. Mild spinal stenosis. Moderate right and mild left lateral recess narrowing. Severe right and mild left neural foraminal narrowing. L4-L5: Disc bulge. Moderate right and severe left facet arthropathy. No significant spinal stenosis. Mild lateral recess narrowing. Moderate right and mild left neural foraminal narrowing. L5-S1: Disc bulge. Mild right and moderate left facet arthropathy. No significant spinal stenosis. Mild left neural foraminal narrowing. IMPRESSION: Moderate to severe lumbar spondylosis, detailed level by level above. Degenerative changes are similar to the prior exam. Electronically signed by: Chris Holcomb MD (10/05/2019 12:41 PM) [id number]
--- NOTE | 2019-10-05 12:53 | KCIC ---
CERVICAL SPINE WO CONTRAST DATE: 10/05/2019 8:45 AM INDICATION: Reason: PARESTHESIA OF HAND LUMBAR RADICULOPATHY / Spl. Instructions: / History: Chronic BUE numbness for yrs. TECHNIQUE: Multiplanar multisequence magnetic resonance imaging of the cervical spine was performed without administration of intravenous contrast using the standard cervical spine protocol. COMPARISON: None. FINDINGS: Motion artifact degrades image quality. Straightening of the cervical lordosis. No acute fracture. Moderate multilevel degenerative disc desiccation and disc height loss. No marrow replacing process to suggest malignancy. The spinal cord is normal in signal intensity. On the limited views of the cranial cavity and brain, the cerebellum and claudia have normal morphology and signal characteristics. No Chiari malformation. No soft tissue abnormality. Normal signal voids are present in the vertebral arteries. C2-3: Mild right and moderate left facet arthropathy. Uncovertebral hypertrophy. Mild bilateral neural foraminal narrowing. No spinal canal stenosis. C3-4: Disc osteophyte complex. Uncovertebral hypertrophy. Mild facet arthropathy. Mild bilateral neural foraminal narrowing. No spinal canal stenosis. C4-5: Disc osteophyte complex. Uncovertebral hypertrophy. Mild facet arthropathy. Mild to moderate right and mild left neural foraminal narrowing. Mild spinal canal stenosis. C5-6: Disc osteophyte complex. Uncovertebral hypertrophy. Moderate facet arthropathy. Moderate right and mild to moderate left neural foraminal narrowing. Mild spinal canal stenosis. C6-7: Disc osteophyte complex. Uncovertebral hypertrophy. Mild facet arthropathy. Mild bilateral neural foraminal narrowing. No spinal canal stenosis. C7-T1: Disc osteophyte complex. No significant spinal canal stenosis or neural foraminal narrowing. IMPRESSION: [id number] cervical spondylosis, detailed level by level above. Electronically signed by: Chris Holcomb MD (10/05/2019 12:50 PM) [id number]
== END ==
LOC: KCIC MRI 08:33
PROVIDERS: ATTEND Family Medicine
DX: M47.27 Other spondylosis with radiculopathy, lumbosacral region (principal); M48.07 Spinal stenosis, lumbosacral region; M51.17 Intervertebral disc disorders with radiculopathy, lumbosacral region; R20.2 Paresthesia of skin; M47.812 Spondylosis without myelopathy or radiculopathy, cervical region; M25.78 Osteophyte, vertebrae; M48.02 Spinal stenosis, cervical region
CPT/HCPCS: 72141; 72148

== ENCOUNTER → 2019-11-29 | Outpatient (CLI) | payer MEDICARE ==
[2015-11-27 12:09] VITALS: BP 136/88
[~2019-11-29] MED LIST changes: +IOHEXOL 180 MG/ML 10 ML VIAL. ONE; +methylPREDNISolone ACETATE 40 MG/ML VIAL. ONE; +methylPREDNISolone ACETATE 80 MG/ML VIAL. ONE
--- NOTE | 2019-11-29 12:51 | PDOC ---
Progress Note - Pain Clinic Date of Service: DOS: DATE: 11/29/19 TIME: 12:45 Diagnosis: Dx: Radiculopathy with lumbar degenerative disease and lumbar spinal stenosis History or Present Illness: HPI: Mrs. Shi 69-year-old female turns follow-up status post lumbar epidural injection x1 last seen June 05, 2019 patient which she did very well initially about 75% improvement for a few days then it was about 50% improvement after the next 2 weeks and now is about 25% improvement overall patient for significant pain low back and bilateral lower extremities right greater than left significant pain in the right hip and right lower extremity posterior gluteus posterior lateral thigh anterior thigh medial thigh medial lower leg worse with walking standing changing positions. Patient reports is a 9 on scale 10 is worse of the past week 7 on average for displacements of 4 today. Patient cries her pain is sharp in the knee leg and thigh cramping with constant pain in the back radiating to the right leg. Patient is recently seen her neurosurgeon who is recommending conservative measures and not surgical intervention as she was told she would need a multilevel spinal fusion to have surgery to correct the issues with her back. Patient did have a new MRI scan dated October 15, 2019 showing multilevel degenerative changes with multiple levels of significant stenosis throughout the lumbar spine. She reports no new motor or sensory deficits no new bowel or bladder incontinence or other complaints. Physical Exam: VS: Blood pressure is 171/106 pulse 71 respirations 18 temperature 98.1 F weight is 1 7 7 pounds PE: PHYSICAL EXAMINATION: GENERAL: The patient is awake, alert, oriented, appropriate, very pleasant demeanor HEENT: Shows normocephalic, atraumatic. Extraocular movements are intact and symmetrical. Oral cavity: Mucous membranes moist and pink. Dentition is intact. NECK: Shows anterior throat supple without palpable lymphadenopathy noted. Swallow reflex symmetrical. CHEST: Shows normal on inspection. Breath sounds are clear bilaterally. HEART: Shows S1, S2 clear. No murmurs auscultated. ABDOMEN: Soft, nontender, nondistended. No palpable organomegaly is noted. No rebound or guarding demonstrated. BACK: Shows spine grossly in the midline. Normal-appearing cervical lordotic curvature. There is slightly increased thoracic kyphosis, some minor flattening of the lumbar lordotic curvature. Lumbar paraspinous muscles show symmetrical on inspection, on palpation shows some moderate tenderness diffusely throughout the upper, middle and lower distribution of the paraspinous muscles bilaterally and also into the lower thoracic paraspinous musculature, firm and tender, but without specific trigger points, without radiation of pain. The patient has good rotational motion of the lumbar spine, both laterally as well as extension and flexion without significant difficulty. No tenderness over the spinous processes, sacrum or sacroiliac regions. EXTREMITIES: Lower extremities show deep tendon reflexes 1+ in the patellar and tendo calcaneus tendons. Motor exam is 4 on a scale of 5 with right dorsiflexion, extension, quadriceps and hamstring flexion and 4/5 on the left. Peripheral pulses are 1+ posterior tibial. No peripheral edema is noted bilaterally. Lower extremities are warm and dry to touch, equal in color and appearance. Straight leg raise noted to be mildly positive on the right about 45 degrees degrees, left side is mildly positive at 45 degrees as well. Gaenslen's and Israel's maneuvers are negative bilaterally as well. The patient is able to stand but needs to help with the chair when getting up out of a seated position to stand at difficulty trying to stand on her toes that she loses balance fairly quickly but walks with a slight shuffling gait does have a walker with her which she is using and depending on fairly significantly. SKIN: Shows warm and dry, good turgor. No edema. No sores, rashes or bruising throughout. Optios were discussed with the patient. The patient's ols chart was reviewed and current medication regimen updated. [] Procedure: Procedure: Options discussed with the patient, patient's old chart was reviewed as her current medication regimen updated current review of systems updated today as well. We will proceed with a lumbar epidural steroid injection today with fluoroscopic guidance. Risks were discussed including but not limited to bleeding infection possibility of epidural hematoma subsequent neurological compromise dural puncture headache spinal cord and or nerve damage side effects steroid medication and poor results regarding pain control. Patient understands wished to proceed. Patient return to clinic in approximately 2 weeks for follow-up was counseled return appointment activity level and side effects to be aware. Medication Injected: Med Injected: Procedure is lumbar epidural steroid injection in prone position, under local anesthetic using sterile prep and drape at the L4-5 level using C-arm fluoroscopic guidance in both AP and lateral views medications injected is 120 mg Depo-Medrol + 10 mL preservative-free normal saline and 2 mL Isovue for contrast- condition at discharge is stable patient tolerated procedure well had no complications. Condition at Discharge: Condition at Discharge: Patient tolerated the procedure well, had no complications. We discussed the possibility of spinal cord stimulator with she and her [id number] who accompanied her at her visit today, and we will give her information regarding this as well she reports she would like to proceed and we will make the arrangements for psychological evaluation and preauthorization for spinal cord stimulation temporary lead trial. CHELSEY RIOS MD Nov 29, 2019 12:51
== END | disposition home or self-care (01) ==
LOC: PNCL 11:35
PROVIDERS: ATTEND Anesthesiology
DX: M51.16 Intervertebral disc disorders with radiculopathy, lumbar region (principal); M48.061 Spinal stenosis, lumbar region without neurogenic claudication; F17.210 Nicotine dependence, cigarettes, uncomplicated; Z79.899 Other long term (current) drug therapy
CPT/HCPCS: 62323; J1030; J1040; Q9965

== ENCOUNTER → 2020-11-06 | Outpatient (CLI) | payer MEDICARE ==
[2015-11-27 12:09] VITALS: BP 136/88
[~2020-11-06] MED LIST changes: +AMLO-186 PO; -AMLO5TAB10 PO
--- NOTE | 2020-11-06 10:52 | PDOC ---
Progress Note - Pain Clinic Date of Service: DOS: DATE: 11/06/20 TIME: 10:47 Diagnosis: Dx: Lumbar radiculopathy with lumbar degenerative disease and lumbar spinal stenosis Cervical radiculopathy cervical degenerative disease and cervical spondylosis History or Present Illness: HPI: 70-year-old female returns for follow-up last seen November patient had more epidural steroid injection at that time with very good results about 80% improvement for 3 to 4 months. Patient reports the pain is returning now over the past few months in the low back and right lower extremity posterior gluteus lateral thigh anterior thigh medial thigh medial lower leg patient reports is worse with walking standing changing positions initially she would do much better with distance walking doing household activities work activities travel with greater ease and comfort now the pain is returning patient reports is a 9 on scale 10 is worse over the past week 7 on average 5 its least is a 7 today patient describes as aching and cramping stabbing and can be constant. We had discussed spinal cord stimulator for the patient last summer and she is interested in pursuing that however she had some other issues going on and was unable to pursue prequalification at that time and she would like to get that st arted once again we will arrange that and get preauthorized as well for spinal cord stimulator as patient has persistent radiculopathy without surgical indication or correction. Patient will be given information for psychological evaluation prior to preauthorization. Physical Exam: VS: Blood pressure is 156/87 pulse 67 respirations 18 temperature is 98.6 F height is 5 foot 4 and weighs 180 pounds PE: PHYSICAL EXAMINATION: GENERAL: The patient is awake, alert, oriented, appropriate, very pleasant in demeanor. HEENT: Shows normocephalic, atraumatic. Extraocular movements are intact and symmetrical. Oral cavity: Mucous membranes moist and pink. NECK: Shows anterior throat supple without palpable lymphadenopathy noted. Swallow reflex symmetrical. CHEST: Shows normal on inspection. Breath sounds are clear bilaterally, no rale s rhonchi or wheezes. HEART: Shows S1, S2 clear. No murmurs auscultated. ABDOMEN: Soft, nontender, nondistended, obese. BACK: Shows spine grossly in the midline. Normal-appearing cervical lordotic curvature. Cervical paraspinous muscles show symmetrical with inspection, on palpation some moderate tenderness diffusely in the inferior aspect cervical. Posterior more on the right than the left and into the superior medial trapezius. Patient shows full rotation motion cervical spine both laterally as well as full extension full forward flexion without significant difficulty. There is increased thoracic kyphosis, some flattening of the lumbar lordotic curvature. Lumbar paraspinous muscles show symmetrical on inspection, on palpation shows some moderate tenderness diffusely throughout the upper, middle and lower distribution of the paraspinous muscles without specific trigger poin ts, without radiation of pain. The patient has good rotational motion of the lumbar spine, both laterally as well as extension and flexion without significant difficulty. No tenderness over the spinous processes, sacrum or sacroiliac regions. EXTREMITIES: Lower extremities show deep tendon reflexes 1+ in the patellar and tendo calcaneus tendons. Motor exam is 4 on a scale of 5 with right dorsiflexion, extension, quadriceps and hamstring flexion and 4/5 on the left. Peripheral pulses are 1+ posterior tibial. No peripheral edema is noted bilaterally. Lower extremities are warm and dry to touch, equal in color and appearance. Upper extremity show deep tendon reflexes 2+ in the bicep triceps tendons motor exam is approximate 4 to scale 5 on the right with sales team manager strength bicep and tricep flexion and 5 out of 5 on the left. Peripheral pulses are 2+ radial no peripheral edema is noted. Shoulder shrug is strong and intact without loss of strength on resistance. SKIN: Shows warm and dry, good turgor. No edema. No sores, rashes or bruising throughout. Procedure: Procedure: Options were discussed with the patient. Patient chart reviewed as her current medication regimen updated current review of systems updated today as well. We will proceed with lumbar epidural steroid injection today with fluoroscopic guidance. Risks were discussed including but not limited to: Bleeding, infection, possibility of epidural hematoma and subsequent neurological compromise, dural puncture, headaches, spinal cord and/or nerve damage, side effects of steroid medication, and poor results regarding pain control. Patient understands and wished to proceed. Patient return to clinic in approximate 2 weeks for follow-up, was counseled as return appointment activity level and side effects to be aware of. Medication Injected: Med Injected: Procedure is lumbar epidural steroid injection under local anesthetic using sterile prep and drape at the L4-5 level using C-arm fluoroscopic guidance in both AP and lateral views medications injected is 120 mg Depo-Medrol +10mL preservative-free normal saline and 2 mL contrast- condition at discharge is stable patient tolerated procedure well had no complications. Condition at Discharge: Condition at Discharge: Condition at discharge stable, patient tolerated procedure well and had no complications. CHELSEY RIOS MD Nov 06, 2020 10:52
--- NOTE | 2020-11-06 10:53 | PDOC4 ---
Procedure Note: Procedure Note: Patient was consented for lumbar epidural steroid injection. Risks were discussed including but not limited to: Bleeding, infection, possibility of epidural hematoma and subsequent neurological compromise, dural puncture, headaches, spinal cord and/or nerve damage, side effects of steroid medication, and poor results regarding pain control. Patient understands and wished to proceed. Procedure is lumbar epidural steroid injection under local anesthetic using sterile prep and drape at the L4 5 level using C-arm fluoroscopic guidance in both AP and lateral views medications injected is 120 mg Depo-Medrol +10mL preservative-free normal saline and 2 mL contrast- condition at discharge is stable patient tolerated procedure well had no complications. CHELSEY RIOS MD Nov 06, 2020 10:53
== END | disposition home or self-care (01) ==
LOC: PNCL 10:02
PROVIDERS: ATTEND Anesthesiology
DX: M51.16 Intervertebral disc disorders with radiculopathy, lumbar region (principal); M48.061 Spinal stenosis, lumbar region without neurogenic claudication; M50.10 Cervical disc disorder with radiculopathy, unspecified cervical region; M47.22 Other spondylosis with radiculopathy, cervical region; I10 Essential (primary) hypertension; F41.9 Anxiety disorder, unspecified; F17.210 Nicotine dependence, cigarettes, uncomplicated; Z90.49 Acquired absence of other specified parts of digestive tract; Z98.890 Other specified postprocedural states; Z79.899 Other long term (current) drug therapy
CPT/HCPCS: 62323; J1030; J1040; Q9965

== ENCOUNTER → 2020-11-20 | Outpatient (CLI) | payer MEDICARE ==
[2015-11-27 12:09] VITALS: BP 136/88
--- NOTE | 2020-11-20 10:53 | PDOC ---
Progress Note - Pain Clinic Date of Service: DOS: DATE: 11/20/20 TIME: 10:49 Diagnosis: Dx: Cervical radiculopathy with cervical degenerative disc disease Lumbar radiculopathy with lumbar spinal stenosis and lumbar degenerative disc disease History or Present Illness: HPI: 70-year-old female returns for follow-up status post lumbar epidural steroid injection November 06. Patient did very well with about 40% improvement her main complaint today however is neck and bilateral upper extremity pain right greater than left. Patient reports significant pain the base the neck and right shoulder right arm radiating to the forearm into the hand with numbness and tingling in the fingers and some numbness and tingling on both hands as well patient reports much worse on the right side worse with repetitive motions reaching weightbearing repetitive lifting or reaching overhead with the right hand. Patient reports it disturbs her sleep occasionally but most nights she can sleep on her left side and does fairly well. Patient reports her pain is 8 on scale 10 is worse over the past week 7 on average for its least and is a 7 today. Patient reports no loss of motor function but some difficulty with fatigue in the hands especially fine motor movements and lifting items even a small is a coffee cup. Patient scribes the pain is tingling burning tight in the neck tingling in the fingers radiating the right upper extremity significantly. We reviewed patient's MRI scan with her today showing mild to moderate cervical spondylosis with most significant finding C4-5 C5-6 and C6-7. Physical Exam: VS: Blood pressure is 132/78 pulse 67 respirations are 18 temperature 97.8 F height 5 foot 4 inches weight 178 pounds PE: PHYSICAL EXAMINATION: GENERAL: The patient is awake, alert, oriented, appropriate, very pleasant in demeanor. HEENT: Shows normocephalic, atraumatic. Extraocular movements are intact and symmetrical. Oral cavity: Mucous membranes moist and pink. Dentition is intact. NECK: Shows anterior throat supple without palpable lymphadenopathy noted. CHEST: Shows normal on inspection. Breath sounds are clear bilaterally, distant but no rales or rhonchi. HEART: Shows S1, S2 clear. No murmurs auscultated. ABDOMEN: Soft, nontender, nondistended, obese. No palpable organomegaly is noted. BACK: Shows spine grossly in the midline. Normal-appearing cervical lordotic curvature. Cervical paraspinous muscles show symmetrical inspection, on palpation some moderate tenderness diffusely in the middle and lower distribution the paraspinous muscles bilaterally more on the right than the left into the superior medial trapezius on the right. Patient shows no trigger points no atrophy hypertrophy no asymmetry. Patient shows good rotation of motion cervical spine with some moderate tenderness past 45 degrees to the right but not to the left full extension full flexion performed without significant pain reported. There is slightly increased thoracic kyphosis, some minor flattening of the lumbar lordotic curvature. Lumbar paraspinous muscles show symmetrical on inspection, on palpation shows some moderate tenderness diffusely throughout the upper, middle and lower distribution of the paraspinous muscles without specific trigger points, without radiation of pain. The patient has good rotational motion of the lumbar spine, both laterally as well as extension and flexion without significant difficulty. No tenderness over the spinous processes, sacrum or sacroiliac regions. EXTREMITIES: Lower extremities show deep tendon reflexes 1+ in the patellar and tendo calcaneus tendons. Motor exam is 4 on a scale of 5 with right dorsiflexion, extension, quadriceps and hamstring flexion and 4/5 on the left. Peripheral pulses are 1+ posterior tibial. No peripheral edema is noted bilaterally. Lower extremities are warm and dry to touch, equal in color and appearance. Upper extremity show deep tendon reflexes 2+ in the bicep triceps tendons, motor exam is positive for scale 5 the right with labor relations director strength bicep and tricep flexion 5 out of 5 on the left. Shoulder shrug strong and intact without loss of strength on resistance. SKIN: Shows warm and dry, good turgor. No edema. No sores, rashes or bruising throughout. Procedure: Procedure: Options discussed with the patient. Patient chart reviews her current medication regimen updated current review of systems updated today as well. We will proceed with a cervical epidural steroid injection stable fluoroscopic guidance. Risks were discussed including but not limited to: Bleeding, infection, possibility of epidural hematoma and subsequent neurological compromise, dural puncture, headaches, spinal cord and/or nerve damage, side effects of steroid medication, and poor results regarding pain control. Patient understands and wished to proceed. Patient will return to the clinic in approximately 2 weeks for follow-up, was counseled as to return appointment activity level and side effects to be aware of. Medication Injected: Med Injected: Procedure cervical epidural steroid injection at the C6-7 level, using local anesthetic under sterile prep and drape using C-arm fluoroscopic guidance under local anesthesia medications injected ;120 mg Depo-Medrol +5 mL normal saline and 2 mL contrast; condition at discharge is stable patient tolerated procedure well. and had no complications Condition at Discharge: Condition at Discharge: Condition at discharge is stable, patient already procedure well and had no complications. CHELSEY RIOS MD Nov 20, 2020 10:53
--- NOTE | 2020-11-20 10:54 | PDOC4 ---
Procedure Note: ICD 10 Code: ICD 10 Code: M 54.12 M 50.30 Procedure Note: Patient was consented for cervical epidural steroid injection with fluoroscopic guidance. Risks were discussed including but not limited to: Bleeding, infection, possibility of epidural hematoma and subsequent neurological compromise, dural puncture, headaches, spinal cord and/or nerve damage, side effects of steroid medication, and poor results regarding pain control. Patient understands and wished to proceed. Procedure cervical epidural steroid injection at the C6-7 level, using local anesthetic under sterile prep and drape using C-arm fluoroscopic guidance under local anesthesia medications injected ;120 mg Depo-Medrol +5 mL normal saline and 2 mL contrast; condition at discharge is stable patient tolerated procedure well. and had no complications CHELSEY RIOS MD Nov 20, 2020 10:54
== END | disposition home or self-care (01) ==
LOC: PNCL 09:44
PROVIDERS: ATTEND Anesthesiology
DX: M50.10 Cervical disc disorder with radiculopathy, unspecified cervical region (principal); M51.16 Intervertebral disc disorders with radiculopathy, lumbar region; M48.061 Spinal stenosis, lumbar region without neurogenic claudication; I10 Essential (primary) hypertension; F41.9 Anxiety disorder, unspecified; F17.210 Nicotine dependence, cigarettes, uncomplicated; Z90.49 Acquired absence of other specified parts of digestive tract; Z98.890 Other specified postprocedural states; Z79.899 Other long term (current) drug therapy
CPT/HCPCS: 62321; J1030; J1040; Q9965

== ENCOUNTER → 2020-12-10 | Outpatient (CLI) | payer MEDICARE ==
[2015-11-27 12:09] VITALS: BP 136/88
[~2020-12-10] MED LIST changes: -IOHEXOL 180 MG/ML 10 ML VIAL. ONE; +LIDOCAINE 1% PF 2 ML VIAL. ONE; -methylPREDNISolone ACETATE 40 MG/ML VIAL. ONE; -methylPREDNISolone ACETATE 80 MG/ML VIAL. ONE
--- NOTE | 2020-12-10 14:25 | PDOC ---
Progress Note - Pain Clinic Date of Service: DOS: DATE: 12/10/20 TIME: 14:10 Diagnosis: Dx: Lumbar radiculopathy with lumbar degenerative disease and lumbar spinal stenosis Cervical radiculopathy with cervical degenerative disc disease History or Present Illness: HPI: 70-year-old female returns for follow-up after cervical epidural steroid injection with good improvement to approximately 50% initially but now about 25% overall patient chief complaint however is low back and right lower extremity pain as the pain is returning in the low back and right leg he treated this with lumbar epidural steroid injections in the past most recently November 06 of this and then had neurosurgical evaluation with Dr. Nilesh Wagner recommending conservative measures and spinal cord stimulation instead of open surgery. Patient reports still significant pain the low back right leg posterior gluteus posterior thigh posterior lateral calf lateral anterior thigh, worse with walking standing changing positions patient reports the pain is an aching and sharp pain shooting cramping stabbing and can be constant with weightbearing. Patient reports no loss of motor function but significant fatigability the right lower extremity. Patient reports no new bowel or bladder incontinence. Physical Exam: VS: Blood pressure is 140/88 pulse 88 respirations 16 temperature 98.2 F weight is 174 pounds PE: PHYSICAL EXAMINATION: GENERAL: The patient is awake, alert, oriented, appropriate, very pleasant in demeanor, patient accompanied by her . HEENT: Shows normocephalic, atraumatic. Extraocular movements are intact and symmetrical. Oral cavity: Mucous membranes moist and pink. NECK: Shows anterior throat supple without palpable lymphadenopathy noted. S wallow reflex symmetrical. CHEST: Shows normal on inspection. Breath sounds are clear bilaterally, no rales rhonchi wheezes auscultated. HEART: Shows S1, S2 clear. No murmurs auscultated. ABDOMEN: Soft, nontender, nondistended, obese. No palpable organomegaly is noted. BACK: Shows spine grossly in the midline. Normal-appearing cervical lordotic curvature. There is slightly increased thoracic kyphosis, some minor flattening of the lumbar lordotic curvature. Lumbar paraspinous muscles show symmetrical o n inspection, on palpation shows some moderate tenderness diffusely throughout the upper, middle and lower distribution of the paraspinous muscles bilaterally, but without specific trigger points, without radiation of pain. The patient has good rotational motion of the lumbar spine, both laterally as well as extension and flexion without difficulty. EXTREMITIES: Lower extremities show deep tendon reflexes 1+ in the patellar and tendo calcaneus tendons. Motor exam is 4 on a scale of 5 with right dorsifle xion, extension, quadriceps and hamstring flexion and 4/5 on the left. Peripheral pulses are 1 posterior tibial. No peripheral edema is noted bilaterally. Lower extremities are warm and dry to touch, equal in color and appearance. SKIN: Shows warm and dry, good turgor. No edema. No sores, rashes or bruising throughout. Procedure: Procedure: Options were discussed with the patient. Patient's old chart was reviewed as her current medication regimen updated current view of systems updated today as well. We will proceed with spinal cord stimulator temporary lead placement x2 with fluoroscopic guidance. Risks were discussed including but not limited to: Bleeding, infection, possibility of epidural hematoma and subsequent neurological compromise, dural puncture, headaches, spinal cord and/or nerve damage, and poor results regarding pain control. Patient understands and wished to proceed. Patient return to clinic in approximate 1 week or sooner if necessary, for evaluation and reassessment of patient's pain level at that time. Medication Injected: Med Injected: Under sterile prep and drape patient in prone position using C-arm fluoroscopic guidance patient's lumbar spine was identified and vertebral levels were counted did put external marker on the T8 level. This time the lumbar spine was revisualized and using 1% lidocaine, the area over the L 4 5 level was anesthetized and then using a 14-gauge Collusiontead needle with stylette was entered to the epidural space at the L to 3 level using a paramedian approach to the right with preservative-free normal saline [id number] technique aspiration was noted to be negative and using direct fluoroscopy visualization spinal cord stimulator lead was then advanced without significant resistance in the midline and confirmed posterior with both AP and lateral views, and advanced to the superior endplate of the T8 vertebral level superimposed with the superior spinal cord stimulator electrode lead. Fluoroscopy was used in a lateral view to verify posterior placement in the epidural space at this point as well. At this time a second lead was then introduced in similar fashion at the L 4 -5 level and inserted and in the epidural space at the L 2- 3 level once again with preservative-free normal saline [id number] technique. Aspiration was again noted to be negative and using direct visualization with fluoroscopy second lumbar spinal cord stimulator lead was advanced without significant resistance in the midline with the superior electrode superimposed over the superior endplate of the T9 vertebral body. Lateral visualization was again confirmed with placement of the stimulator in the posterior epidural space. At this time the needles and stylette were removed with intermittent fluoroscopic visualization maintaining that the leads had not moved during this process and this was confirmed. This time 1% lidocaine was used to anesthetize the skin next to the insertion sites of the stimulator wires and using a 2-0 silk were then sutured in place. Mastisol and Tegaderm was then applied as well as reinforcing tape and gauze. Patient was transferred to the recovery area under his own power walking without difficulty and had no immediate complications from the procedure. Stimulation was then carried out with [facility] representatives. Patient will return to the clinic in approximately 1 week for removal of the temporary leads and reassessment of the patient's pain level. Condition at Discharge: Condition at Discharge: Condition at discharge stable, patient tolerated the procedure well and had no complications. CHELSEY RIOS MD Dec 10, 2020 14:25
== END ==
LOC: PNCL 12:50
PROVIDERS: ATTEND Anesthesiology
DX: M51.16 Intervertebral disc disorders with radiculopathy, lumbar region (principal); M48.061 Spinal stenosis, lumbar region without neurogenic claudication; I10 Essential (primary) hypertension; F41.9 Anxiety disorder, unspecified; Z79.899 Other long term (current) drug therapy; Z90.49 Acquired absence of other specified parts of digestive tract; Z98.890 Other specified postprocedural states
CPT/HCPCS: 63650; C1897; J3490

== ENCOUNTER → 2020-12-17 | Outpatient (CLI) | payer MEDICARE ==
[2015-11-27 12:09] VITALS: BP 136/88
[~2020-12-17] MED LIST changes: -LIDOCAINE 1% PF 2 ML VIAL. ONE
--- NOTE | 2020-12-17 15:18 | PDOC ---
Progress Note - Pain Clinic Date of Service: DOS: DATE: 12/17/20 TIME: 15:14 Diagnosis: Dx: Lumbar radiculopathy with lumbar degenerative disease and lumbar spinal stenosis Cervical radiculopathy with cervical degenerative disc disease History or Present Illness: HPI: 70-year-old female returns for follow-up status post spinal cord stimulator temporary leads placement 1 week ago. Patient reports she did fairly well initially but then the pain began to return and she is unsure if it is successful enough to warrant wishing for a permanent system. Patient reports that if she is still not active the pain was very well controlled but earlier in the week she was active and the pain was controlled as well patient reports her pain was more noticeable in the mornings when she first got up over the past few days. Patient reports still aching and dull in the back shooting across the back cramping and stabbing in the lower extremities pressure on the right side patient rates her pain as 8 on scale 10 is worse over the past week 6 on average to its least and is a 5 today. Patient reports no new motor or sensory deficits reports he was sleeping better at night generally not awaken from sleep over the past week. Patient reports no new motor or sensory deficits no new bowel or bladder incontinence or other complaints. Physical Exam: VS: Blood pressure is 129/74 pulse 73 respirations 18 temperature 98.2 F height is 5 foot 4 inches weight is 176 pounds PE: PHYSICAL EXAMINATION: GENERAL: The patient is awake, alert, oriented, appropriate, very pleasant in demeanor HEENT: Shows normocephalic, atraumatic. Extraocular movements are intact and symmetrical. NECK: Shows anterior throat supple without palpable lymphadenopathy noted. Swal low reflex symmetrical. CHEST: Shows normal on inspection. Breath sounds are clear bilaterally. HEART: Shows S1, S2 clear. No murmurs auscultated. ABDOMEN: Soft, nontender, nondistended. BACK: Shows spine grossly in the midline. Normal-appearing cervical lordotic curvature. There is slightly increased thoracic kyphosis, some minor flattening of the lumbar lordotic curvature. Lumbar paraspinous muscles show symmetrical on inspection, on palpation shows some moderate tenderness diffusely throughout the upper, middle and lower distribution of the paraspinous muscles without specific trigger points, without radiation of pain. The patient has good rotational motion of the lumbar spine, both laterally as well as extension and flexion without significant difficulty. No tenderness over the spinous processes, sacrum or sacroiliac regions. Well bandaged with spinal cord stimulator leads, with bandage intact. Dressing was taken down exposing stimulator leads, clean dry no erythema no drainage. EXTREMITIES: Lower extremities show deep tendon reflexes 1+ in the patellar and tendo calcaneus tendons. Motor exam is 4 on a scale of 5 with right dorsiflexion, extension, quadriceps and hamstring flexion and 4/5 on the left. Peripheral pulses are 1+ posterior tibial. No peripheral edema is noted bilaterally. Lower extremities are warm and dry. SKIN: Shows warm and dry, good turgor. No edema. No sores, rashes or bruising throughout. Procedure: Procedure: Patient's dressings were taken down under sterile technique sutures were removed and stimulator leads were removed x2 with tips intact. Site was clean and dry without erythema no drainage no tenderness. Medication Injected: Med Injected: None Condition at Discharge: Condition at Discharge: Condition at discharge is stable. Patient will consider stimulation system now that the stimulator is removed and we advised her to take her time and considering what her pain level may be now with activity and sleeping etc. with the stimulator system removed. Patient will follow up at this time in approxima te 1 week with a progress report. CHELSEY RIOS MD Dec 17, 2020 15:18
== END | disposition home or self-care (01) ==
LOC: PNCL 14:31
PROVIDERS: ATTEND Anesthesiology
DX: M51.16 Intervertebral disc disorders with radiculopathy, lumbar region (principal); M50.10 Cervical disc disorder with radiculopathy, unspecified cervical region; M48.061 Spinal stenosis, lumbar region without neurogenic claudication; I10 Essential (primary) hypertension; F41.9 Anxiety disorder, unspecified; F17.210 Nicotine dependence, cigarettes, uncomplicated; Z90.49 Acquired absence of other specified parts of digestive tract; Z98.890 Other specified postprocedural states; Z79.899 Other long term (current) drug therapy
CPT/HCPCS: 99212; G0463